=== PATIENT | female | born 1930 | race Caucasian/White ===

== ENCOUNTER 2018-11-19 16:36 | Inpatient (IN) ==
--- NOTE | 2018-11-19 17:20 | Emergency Department Note ---
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 The time I documented below is in addition to time spent performing reported procedures but includes the following listed in this critical care notation. Total Critical Care Time: 35 Vital system(s) involved:: Renal Failure My critical care processes included: Assessment & monitoring of V/S, Initial and Re-exams, Data Review/Interpretation, Coordinating Care, Medication Orders and management, Documentation Medical Decision Making - Patrick Inquiry Pt receiving controlled substance: No Vital Signs: 11/19/18 16:38 11/19/18 17:31 11/19/18 18:55 Temperature 97.9 F Temperature Source Oral Pulse Rate [Right Radial] 69 131 H 72 Respiratory Rate 18 14 18 Blood Pressure [Right Arm] 104/63 L 131/77 137/78 Blood Pressure Mean [Right Arm] 76 95 97 Blood Pressure Source [Right Arm] Automatic Cuff Automatic Cuff Automatic Cuff Blood Pressure Position [Right Arm] Sitting Supine Sitting 02 Sat by Pulse Oximetry 97 97 95 Oxygen Delivery Method Room Air Room Air Room Air 11/19/18 19:38 Temperature Temperature Source Pulse Rate [Right Radial] 72 Respiratory Rate 16 Blood Pressure [Right Arm] 104/54 L Blood Pressure Mean [Right Arm] 70 Blood Pressure Source [Right Arm] Automatic Cuff Blood Pressure Position [Right Arm] Supine 02 Sat by Pulse Oximetry 97 Oxygen Delivery Method Room Air - Lab Data Lab Results 11/19/18 18:18: WBC 6.0, RBC 3.58 L, Hgb 12.2, Hct 36.1 L, MCV 101.1 H, MCH 34.0 H, MCHC 33.6, RDW 13.7, Plt Count 114 L, MPV 9.0, Neut % (Auto) 74.7, Lymph % (Auto) 17.6, [place] % (Auto) 7.0, Eos % (Auto) 0.6, Baso % (Auto) 0.1, Neut # (Auto) 4.5, Lymph # (Auto) 1.1, [place] # (Auto) 0.4, Eos # (Auto) 0.0, Baso # (Auto) 0.0 11/19/18 18:18: Sodium 148 H, Potassium 4.2, Chloride 110 H, Carbon Dioxide 23, Anion Gap 19.2 H, BUN 78 H, Creatinine 3.01 H, Estimated Creat Clear 13, Estimated GFR 15 L*, Est GFR ( Amer) 18 L*, Glucose 100, Calcium 9.0, Total Bilirubin 0.3, AST 12 L, ALT 14, Alkaline Phosphatase 73, Total Creatine Kinase 48, Troponin I < 0.02, Total Protein 7.4 D, Albumin 3.4, Globulin 4.0 H, Albumin/Globulin Ratio 0.9 L 11/19/18 18:50: Urine Color Yellow, Urine Appearance Clear, Urine pH 6.0, Ur Specific [place] 1.010, Urine Protein Trace, Urine Glucose (UA) Negative, Urine Ketones Negative, Urine Blood Negative, Urine Nitrate Negative, Urine Bilirubin Negative, Urine Urobilinogen 0.2, Ur Leukocyte Esterase Negative, Urine WBC Occasional, Ur Squamous Epith Cells Occasional, Urine Bacteria Trace Result diagrams: 11/19/18 18:18 11/19/18 18:18 Orders (Tests/Meds): ED MEDICATIONS Generic Name Dose Route Start Last Admin Trade Name Freq PRN Reason Stop Dose Admin Ceftriaxone Sodium 1 gm/ 50 mls @ 100 mls/hr 11/19/18 20:00 Sodium Chloride IV 12/03/18 19:59 Q24H LENA Protocol Sodium Chloride 1,000 mls @ 150 mls/hr 11/19/18 20:00 Sod Chlor 0.45% 1000ml Bag IV 12/19/18 19:59 .Q6H40M LENA Discontinued Medications Generic Name Dose Route Start Last Admin Trade Name Freq PRN Reason Stop Dose Admin Sodium Chloride 1,000 mls @ 150 mls/hr 11/19/18 19:30 Sod Chlor 0.9% 1000ml Bag IV 12/19/18 19:29 .Q6H40M LENA ORDERS Category Date Time Status CT cervical spine wo con Stat Cat Scan 11/19/18 17:[address] head/brain wo con Stat Cat Scan 11/19/18 17:[address] lumbar spine wo con Stat Cat Scan 11/19/18 16:[address] thoracic spine wo con Stat Cat Scan 11/19/18 16:53 Taken XR chest portable Stat Exams 11/19/18 17:56 Taken - Radiology Data #1 Image(s): Chest Image Reviewed: Yes I reviewed the patient's radiology image Bilateral calcified pleural plaques. No acute disease. - CT Data CT Scan: Head, C-Spine, T-Spine, L-Spine Time Received: 18:[address] Reviewed: Yes: I have viewed the radiologist's interpretation Findings Narrative: CT scan interpreted by [facility] radiologist. Faxed report received and reviewed: 6:03 PM Thoracic spine: Minimal compression of T12. Age cannot be clearly determined. No evidence to indicate fracture. 6:26 PM lumbar spine: No fracture. Advanced degenerative changes with severe segmental central spinal stenosis from L2-L3 to L4-L5. Multilevel foraminal stenosis. 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 No acute injury or lesion. Extensive sinusitis. 7:10 PM cervical spine: No fracture. - ECG Data Tracing #1 EKG interpreted by Joaquim Beverly MD: Rhythm: sinus Rate: 72 [place]: normal Ectopy: none Conduction: normal ST Segment Changes: none T Wave Changes: none Q Waves: none No evidence of acute ischemia or injury Low voltage QRS Significant baseline artifact present. - Physician Consults Physician Consulted: Mervin Time: 19:45 Reason -: Admission Comment/Response: Agrees to admit the patient to the hospital. We discussed the patient's clinical information, including history, exam, laboratory and radiology results and ED course. Per hospital procedure, I will write temporary bridge inpatient orders on the patient. Specific orders requested by the admitting physician: Rocephin, one half normal saline, [facility]he[facility] General Adult HPI - General Chief complaint: Fall Stated complaint: fall, back pain and abd pain Time Seen by Provider: 11/19/18 17:19 Mode of Arrival: EMS Limitations: No Limitations Description of Symptoms (Recalled from ER Triage Doc. by RN): Pt c/o lower back pain and lower abd pain. Pt daughter reports she fell earlier today when getting back into bed after going to the restroom. pts daughter reports pt slid down in the floor states pt back was up against the matress when she fell. - History of Present Illness HPI narrative: Brought in by ambulance. History obtained from patient and family. At 730 this morning while family was sleeping the patient got up, apparently go to the bathroom, using her walker, and fell when getting back into bed. Daughter heard her fall and found her sitting beside the bed where she had apparently tried to turn around and sit on the bed and slipped down along the bed. Daughter noticed some bruises of her left arm. Patient complained of pain right cheek as well. She complains of chronic pain and daughter says it was not really changed and she did not suspect any significant injuries. They waited for a male family member to get home from the paleology teacher so that they could get her back into bed. She slept most of the day. When she woke up at noon she did not think she could walk to the bathroom because of generalized weakness. She has urinated twice on a urine pad today. She has not eaten today. She drank very little. They feel like she has been declining for the past week, walking very little, which is unusual for her. Having intermittent myoclonic jerks. They think 1 of these jerks may have caused her to fall today. However, fall was unwitnessed. They say she is acting the same way she did when she had a UTI last year. - Related Data Home Medications Medication Instructions Recorded Confirmed Cyanocobalamin (Vitamin B-12) 1,000 mcg PO DAILY 08/19/17 11/19/18 [Vitamin B-12 1000mcg Tablet] Ferrous Sulfate [Iron] 325 mg PO DAILY 08/19/17 11/19/18 Fluticasone Propionate [Flonase 2 spr IN DAILY 08/19/17 11/19/18 50mcg nasal spray 16gm] Furosemide [Furosemide 20mg Tab] 20 mg PO DAILY 08/19/17 11/19/18 Gabapentin [Gabapentin 100mg Cap] 100 mg PO BID 08/19/17 11/19/18 Gemfibrozil 600 mg PO BID 08/19/17 11/19/18 Hydralazine HCl [Hydralazine HCl 25 mg PO DAILY 08/19/17 11/19/18 25mg Tablet] Levobunolol HCl [Betagan 0.5% 10mL 1 drop EYE-BOTH DAILY 08/19/17 11/19/18 opth zohaib] Lisinopril/Hydrochlorothiazide 20 - 25 mg PO DAILY 08/19/17 11/19/18 [Lisinopril-Hctz 20-25 mg Tab] Loratadine [Allergy Relief] 10 mg PO DAILY 08/19/17 11/19/18 Memantine HCl/Donepezil HCl 10 - 14 mg PO DAILY 08/19/17 11/19/18 [Namzaric 14 mg-10 mg Capsule] Metoprolol Tartrate [Lopressor 25 mg PO DAILY 08/19/17 11/19/18 25mg tablet] Omeprazole [Omeprazole 40mg 40 mg PO DAILY 08/19/17 11/19/18 Capsule] Polyethylene Glycol 3350 [Miralax 17 gm PO DAILY 11/19/18 11/19/18 17gm Packet] Previous Rx's Medication Instructions Recorded Acetaminophen [Tylenol 500mg 500 mg PO Q4HP PRN tablet 08/27/17 tablet] Allergies Allergy/AdvReac Type Severity Reaction Status Date / Time No Known Allergies Allergy Verified 08/18/17 22:29 [place] History - Hepatitis A Screen Drug use history?: No High risk sexual behaviors?: No History of sexually transmitted infection?: No Currently employed?: No Childcare worker?: No Do you have indoor plumbing?: Yes Do you have electricity?: Yes Attestation statement:: This patient has been screened for Hepatitis A risk factors. I have reviewed the patient's past medical history: Yes Medical History: Reports:: Hyperlipidemia, Hypertension, Renal Insufficiency Denies:: Cancer, Diabetes Mellitus Type 1, Diabetes Mellitus Type 2, MRSA Other Medical History: Reports: Anemia, Arthritis, Cataracts, Glaucoma, Hormone Therapy Laterality Cases: Bilateral: Cataract Other Surgeries: Yes: , Hysterectomy-Total, Other (GALL BLADDER) Amputation: No Fractures: No Comment: cholecystectomy - Social History Smoking Status: Former smoker Tobacco Type: cigarettes Alcohol Intake: never Occupational Status: other Housing: house Household Members: none Comment: lives alone; her daughter has been staying with her - Psychiatric History Expresses thoughts of harming self/others: None Suicide Plan Description: No Plan Family Hx:: Anemia, Hyperlipidemia, Kidney Disease ROS Obtained: Yes All systems reviewed & no additional complaints - Constitutional Constitutional: Denies fever(s), Reports malaise, Reports weakness - Cardiovascular Cardiovascular: Denies chest pain - Respiratory Respiratory: No cough, No dyspnea - Gastrointestinal Gastrointestingal: Denies: abdominal pain (denies to me), diarrhea, vomiting - Musculoskeletal Musculoskeletal: Reports back pain (chronic), Denies neck pain - Neurologic Neurologic: Denies headache(s) Physical Exam - General General appearance: alert, in no apparent distress - Head Head exam: atraumatic, normocephalic - Eye Eye exam: Present: normal appearance, EOMI - ENT ENT exam: Present: mucous membranes moist, other (Tender over right maxilla, but no ecchymosis or deformity.) - Neck Neck exam: Present: normal inspection - Chest Chest inspection: Present: normal inspection, symmetric chest wall rise - Respiratory Respiratory exam: Present: normal lung sounds bilaterally. Absent: respiratory distress - Cardiovascular Cardiovascular exam: Present: regular rate, normal rhythm, normal heart sounds - Abdominal Exam Abdominal exam: Present: soft, tenderness (Minimal, diffuse). Absent: distention, guarding, rebound, rigidity - Extremities Exam Extremities exam: Present: full ROM, normal capillary refill - Neurological Exam Neurological exam: Present: alert, oriented X3, CN II-XII intact. Absent: motor sensory deficit - Psychiatric Psychiatric exam: Present: normal affect, normal mood - Skin Skin exam: Present: warm, dry - Other Other exam information: No deformity of extremities. No shortening or malrotation of lower extremities. Normal neurovascular status throughout. Moves all 4 extremities.
[2018-11-19 18:29] LABS: Basophils % 0.1 % (0.1-2.0); Eosinophils % 0.6 % (0.1-12.0); Hematocrit 36.1 % (37.0-47.0); Hemoglobin 12.2 g/dL (12.2-16.2); Lymphocytes # 1.1 K/mm3 (0.7-4.5); Lymphocytes % 17.6 % (10-50); Mean Corpuscular HGB Conc 33.6 g/dL (31.8-35.4); Mean Corpuscular Volume 101.1 fl (81-99); Monocytes # 0.4 K/mm3 (0.1-1.0); Neutrophils # 4.5 K/mm3 (1.8-7.8); Neutrophils % 74.7 % (37.0-80.0); Platelet Count 114 K/mm3 (142-424); Red Blood Count 3.58 M/mm3 (4.20-5.40); Red Cell Distribution Width 13.7 % (11.5-17.5)
[2018-11-19 18:57] LABS: Microscopic, Urine URINE MICROSCOPIC (MICROSCOPIC)
[2018-11-19 19:01] LABS: Appearance,Urine CLEAR (Clear); Bilirubin,Urine Negative (Negative); Blood, Urine Negative (Negative); Color,Urine YELLOW (Yellow); Glucose,Urine (UA) Negative (Negative); Ketones,Urine Negative (Negative); Leukocyte Esterase,Urine Negative (Negative); Protein,Urine TRACE (Negative); Urobilinogen,Urine 0.2 EU/dl (0.2)
[2018-11-19 19:05] LABS: Alanine Aminotransferase 14 U/L (12-78); Albumin Level 3.4 gm/dL (3.4-5.0); Albumin/Globulin Ratio 0.9 (1.1-1.8); Alkaline Phosphatase 73 U/L (46-116); Anion Gap 19.2 mEq/L (5-15); Aspartate Amino Transferase 12 U/L (15-37); Bilirubin,Total 0.3 mg/dL (0.2-1.0); Carbon Dioxide 23 mmol/L (21.0-32.0); Chloride 110 mmol/L (98-107); Creatine Kinase 48 U/L (26-192); Glucose 100 mg/dL (74-106); Potassium 4.2 mmoL/L (3.5-5.1); Sodium 148 mmol/L (136-145); Total Protein,Serum 7.4 gm/dL (6.4-8.2)
[2018-11-19 19:07] LABS: Blood Urea Nitrogen 78 mg/dL (7-18)
[2018-11-19 19:11] LABS: Bacteria,Urine Trace /lpf; Squamous Epithelial Cell,Urine Occasional #/hpf (0-5); WBC,Urine Occasional #/hpf (0-3)
[2018-11-20 06:58] LABS: Anion Gap 21.6 mEq/L (5-15); Calcium 8.8 mg/dL (8.5-10.1); Potassium 3.6 mmoL/L (3.5-5.1)
--- NOTE | 2018-11-20 08:35 | Pharmacy Consult Notes ---
[facility] Pharmacy VTE Monitoring - Patient Demographics Admission date: 11/20/18 Report Date: 11/20/18 Time: 08:34 Allergies/Adverse Reactions: Patient Allergies No Known Allergies Allergy (Verified 08/18/17 22:29) Height: 1.55 m Weight: 64.949 kg Patient Problems: Current Active Problems (Updated 11/19/18 @ 19:41 by Joaquim Beverly MD) Acute renal failure (Acute) Dehydration (Acute) Pansinusitis (Acute) Fall (Acute) - VTE Risk Labs: VTE Related Lab Results Hgb 12.2 g/dL (12.2-16.2) 11/19/18 18:18 Hct 36.1 % (37.0-47.0) L 11/19/18 18:18 Plt Count 114 K/mm3 (142-424) L 11/19/18 18:18 BUN 65 mg/dL (7-18) H 11/20/18 05:55 Creatinine 2.07 mg/dL (0.55-1.02) H D 11/20/18 05:55 Estimated Creat Clear 19 mL/min (50-200) 11/20/18 05:55 VTE Score: 2 VTE Risk Level: Very Low Risk Clinical Trial Participant: No - Prophylaxis VTE Prophylaxis Ordered?: Yes Types of VTE Prophylaxis: TEDS Knee High
--- NOTE | 2018-11-20 12:26 | History & Physical Report ---
*Admission Date: 11/20/18 *Chief complaint: Acute Renal Failure *History of present illness: Ms. Sequeira is an 88yo WF with hx of HTN, HLP, Renal Insufficiency, Glaucoma, GERD, and Anemia who was brought to the [facility] ED yesterday by squad. Her daughter provides most of the history and describes her falling yesterday morning while coming out of the bathroom followed by increasing lower extremity weakness and lethargy as the day progressed. When she was unable to ambulate to the bathroom in the afternoon, EMS was summoned and she was transported to the ED for further evaluation. The daughter reports that the patient had experienced some decrease in appetite and energy levels over the prior two weeks. The daughter also notes that the patient reported some involuntary "jerking" of her legs which she blamed as the cause of her fall. Upon arrival to the ED, her kidney function was found to be low with BUN 78, Creatinine 3.01, and GFR 15. Imaging showed chronic changes throughout the spine with T12 compression fracture new since July 2017 and CXR showed increased markings in the right lower lobe with recommendation for followup studies. She was admitted for IVF and further evaluation. This morning, she is resting quietly with her daughter at the bedside. She reports feeling better than she did yesterday and was able to eat a few bites of her breakfast. She notes continued pain in her right ribs with movement or with deep breathing as a result of her fall. [facility] History Medical History: Reports:: Gastroesophageal Reflux Disease(GERD), Hyperlipidemia, Hypertension, Osteoporosis, Renal Insufficiency Denies:: Cancer, Diabetes Mellitus Type 1, Diabetes Mellitus Type 2, MRSA *Have you ever received a pneumonia vaccine?: No *Have you received a flu vaccine this season?: No Other Medical History: Reports: Anemia, Arthritis, Cataracts, Glaucoma, Hormone Therapy, Osteoporosis Laterality Cases: Bilateral: Cataract Other Surgeries: Yes: Cholecystectomy, , Hysterectomy-Total, Other (GALL BLADDER) Amputation: No Fractures: No - *Social History Smoking Status: Former smoker Tobacco Type: cigarettes Alcohol Intake: never *Occupational Status:: other Housing: house Household Members: children, none *Travel in the last 8 weeks: None - Psychiatric History Expresses thoughts of harming self/others: None Suicide Plan Description: No Plan Family Hx:: Anemia, Hyperlipidemia, Kidney Disease Review of Systems - Constitutional Reports fatigue, Reports weakness, Denies fever(s) - ENT Denies nasal congestion, Denies sore throat - *Cardiovascular Denies chest pain, Denies shortness of breath, Denies lightheadedness - *Respiratory Reports pain on inspiration (due to rib pain from fall), Denies cough, Denies shortness of breath - *Gastrointestinal Denies abdominal pain, Denies nausea, Denies vomiting Comments: recent decrease in appetite - *Genitourinary Denies difficulty urinating - *Musculoskeletal Reports muscle weakness - *Neurologic Reports abnormal movements, Reports unsteadiness, Reports localized weakness, Reports seizure-like activity, Reports weakness, Denies dizziness, Denies headache(s) Meds Home Medications Medication Instructions Recorded Confirmed Type Cyanocobalamin (Vitamin B-12) 1,000 mcg PO DAILY 08/19/17 11/19/18 History [Vitamin B-12 1000mcg Tablet] Ferrous Sulfate [Iron] 325 mg PO DAILY 08/19/17 11/19/18 History Fluticasone Propionate [Flonase 1 spr IN DAILY 08/19/17 11/20/18 History 50mcg nasal spray 16gm] Furosemide [Furosemide 20mg Tab] 20 mg PO DAILY 08/19/17 11/19/18 History Gabapentin [Gabapentin 100mg Cap] 100 mg PO BID 08/19/17 11/19/18 History Hydralazine HCl [Hydralazine HCl 25 mg PO DAILY 08/19/17 11/19/18 History 25mg Tablet] Levobunolol HCl [Betagan 0.5% 10mL 1 drop EYE-BOTH DAILY 08/19/17 11/19/18 History opth zohaib] Lisinopril/Hydrochlorothiazide 1 tab PO DAILY 08/19/17 11/20/18 History [Lisinopril-Hctz 20-25 mg Tab] Loratadine [Allergy Relief] 10 mg PO DAILY 08/19/17 11/19/18 History Memantine HCl/Donepezil HCl 1 tab PO DAILY 08/19/17 11/20/18 History [Namzaric 14 mg-10 mg Capsule] Metoprolol Tartrate [Lopressor 25 mg PO DAILY 08/19/17 11/19/18 History 25mg tablet] Omeprazole [Omeprazole 40mg 40 mg PO DAILY 08/19/17 11/19/18 History Capsule] Acetaminophen [Tylenol 500mg 500 mg PO Q4HP PRN tablet 08/27/17 11/19/18 Rx tablet] Polyethylene Glycol 3350 [Miralax 17 gm PO DAILY 11/19/18 11/19/18 History 17gm Packet] Furosemide [Furosemide 20mg Tab] 10 mg PO HS 11/20/18 11/20/18 History Gemfibrozil 600 mg PO BID 11/20/18 11/20/18 History Allergies Allergy/AdvReac Type Severity Reaction Status Date / Time No Known Allergies Allergy Verified 08/18/17 22:29 Exam Vital signs and Labs for Last 24 Hours: Temp Pulse Resp BP Pulse Ox 98.3 F 79 18 138/52 L 96 11/20/18 08:00 11/20/18 08:00 11/20/18 08:00 11/20/18 08:00 11/20/18 08:00 Laboratory Results - last 24 hr 11/19/18 18:18: WBC 6.0, RBC 3.58 L, Hgb 12.2, Hct 36.1 L, MCV 101.1 H, MCH 34.0 H, MCHC 33.6, RDW 13.7, Plt Count 114 L, MPV 9.0, Neut % (Auto) 74.7, Lymph % (Auto) 17.6, [place] % (Auto) 7.0, Eos % (Auto) 0.6, Baso % (Auto) 0.1, Neut # (Auto) 4.5, Lymph # (Auto) 1.1, [place] # (Auto) 0.4, Eos # (Auto) 0.0, Baso # (Auto) 0.0 11/19/18 18:18: Sodium 148 H, Potassium 4.2, Chloride 110 H, Carbon Dioxide 23, Anion Gap 19.2 H, BUN 78 H, Creatinine 3.01 H, Estimated Creat Clear 13, Estimated GFR 15 L*, Est GFR ( Amer) 18 L*, Glucose 100, Calcium 9.0, Total Bilirubin 0.3, AST 12 L, ALT 14, Alkaline Phosphatase 73, Total Creatine Kinase 48, Troponin I < 0.02, Total Protein 7.4 D, Albumin 3.4, Globulin 4.0 H, Albumin/Globulin Ratio 0.9 L 11/19/18 18:50: Urine Color Yellow, Urine Appearance Clear, Urine pH 6.0, Ur Specific [place] 1.010, Urine Protein Trace, Urine Glucose (UA) Negative, Urine Ketones Negative, Urine Blood Negative, Urine Nitrate Negative, Urine Bilirubin Negative, Urine Urobilinogen 0.2, Ur Leukocyte Esterase Negative, Urine WBC Occasional, Ur Squamous Epith Cells Occasional, Urine Bacteria Trace 11/20/18 05:55: Sodium 148 H, Potassium 3.6, Chloride 111 H, Carbon Dioxide 19 L , Anion Gap 21.6 H, BUN 65 H, Creatinine 2.07 H D, Estimated Creat Clear 19, Estimated GFR 23 L, Est GFR ( Amer) 27 L D, Glucose 70 L D, Calcium 8.8 I & O for Last 24 hours: Intake & Output 11/18/18 11/19/18 11/20/18 11/21/18 11:59 11:59 11:59 11:59 Intake Total 1884 Balance 1884 Weight 143 lb 3.008 oz - Constitutional no acute distress - *Routine HEENT Exam Head: Present: normocephalic, atraumatic Eye: Present: PERRL, normal accommodation ENT: Present: mucous membranes moist - *Routine Neck Exam Present: supple, full ROM. Absent: lymphadenopathy - *Routine Respiratory Exam Present: CTA bilaterally - *Routine Cardiovascular Exam Present: RRR - *Routine Abdominal Exam Present: soft, normoactive bowel sounds. Absent: tenderness, distended, guarding, rigid, organomegaly, mass - *Routine Extremities Exam Comments: trace BLE edema - *Routine Neurological Exam Present: alert, oriented X3, normal speech Assessment and Plan - Assessment and plan all Dx Assessment and Plan for all problems:: Renal function slowly improving. Continue gentle hydration. Further per Dr. Jeffries.
--- NOTE | 2018-11-21 08:45 | Progress Note ---
Internal Medicine - PN: Subj *Date: 11/21/18 *Time: 08:42 Interval history: Patient states she feels awful this morning. She says she hurts all over and did not rest well during the night due to nausea. She has not eaten much this morning. Exam Vital signs and Labs for Last 24 Hours: Temp Pulse Resp BP Pulse Ox 98.1 F 75 20 143/52 H 97 11/21/18 07:40 11/21/18 07:40 11/21/18 07:40 11/21/18 07:40 11/21/18 07:40 I & O for Last 24 hours: Intake & Output 11/18/18 11/19/18 11/20/18 11/21/18 11:59 11:59 11:59 11:59 Intake Total 1884 / 1884 3876 / 3876 Balance 1884 / 1884 3876 / 3876 Weight 143 lb 3.008 oz 145 lb 3 oz - Constitutional Comments: Does not appear to feel well - *Routine HEENT Exam ENT: Present: mucous membranes dry - *Routine Neck Exam Present: supple. Absent: lymphadenopathy - *Routine Respiratory Exam Present: CTA bilaterally - *Routine Cardiovascular Exam Present: RRR - *Routine Abdominal Exam Present: soft, normoactive bowel sounds. Absent: tenderness - *Routine Extremities Exam Absent: cyanosis, clubbing, edema - *Routine Skin Exam Present: pallor. Absent: rash - *Routine Neurological Exam Present: alert, oriented X3 Assessment and Plan (1) Acute renal failure Current visit: Yes Status: Acute Qualifiers: Acute renal failure type: unspecified Qualified Code(s): N17.9 - Acute kidney failure, unspecified Category: Medical Code(s): N17.9 - Acute kidney failure, unspecified (2) Dehydration Current visit: Yes Status: Acute Category: Medical Code(s): E86.0 - Dehydration (3) Fall Current visit: Yes Status: Acute Qualifiers: Encounter type: initial encounter Qualified Code(s): W19.XXXA - Unspecified fall, initial encounter Category: Medical Code(s): W19.XXXA - Unspecified fall, initial encounter (4) Pansinusitis Current visit: Yes Status: Acute Qualifiers: Chronicity: unspecified Qualified Code(s): 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 Category: Medical Code(s): 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 (5) Nausea Current visit: Yes Status: Acute Category: Medical Code(s): R11.0 - Nausea - Assessment and plan all Dx Assessment and Plan for all problems:: We will start on some nausea medicine today and will repeat lab work and get a CPK.
[2018-11-21 09:29] LABS: Basophils % 0.3 % (0.1-2.0); Eosinophils # 0.1 K/mm3 (0.0-0.4); Eosinophils % 2.4 % (0.1-12.0); Hematocrit 38.3 % (37.0-47.0); Hemoglobin 12.7 g/dL (12.2-16.2); Lymphocytes % 30.3 % (10-50); Mean Corpuscular HGB Conc 33.2 g/dL (31.8-35.4); Mean Corpuscular Hemoglobin 33.2 pg (27.0-31.2); Mean Corpuscular Volume 99.9 fl (81-99); Mean Platelet Volume 9.3 fl (7.4-10.4); Monocytes # 0.2 K/mm3 (0.1-1.0); Monocytes % 6.9 % (1.7-9.3); Neutrophils % 60.2 % (37.0-80.0); Platelet Count 80 K/mm3 (142-424); Red Blood Count 3.83 M/mm3 (4.20-5.40); Red Cell Distribution Width 13.5 % (11.5-17.5); White Blood Count 3.3 K/mm3 (4.8-10.8)
[2018-11-21 10:23] LABS: Albumin Level 2.6 gm/dL (3.4-5.0); Albumin/Globulin Ratio 0.7 (1.1-1.8); Anion Gap 18.3 mEq/L (5-15); Bilirubin,Total 0.2 mg/dL (0.2-1.0); Calcium 8.7 mg/dL (8.5-10.1); Globulin 3.8 gm/dl (1.3-3.2); Potassium 3.3 mmoL/L (3.5-5.1); Total Protein,Serum 6.4 gm/dL (6.4-8.2)
--- NOTE | 2018-11-22 11:05 | Progress Note ---
Internal Medicine - PN: Subj *Date: 11/22/18 *Time: 11:02 Interval history: We were planning to admit the patient to swing bed but she has had a mental status change. Her potassium was low yesterday at 3.3 and was not corrected. The order for supplemental potassium is placed. IV fluids were discontinued last night and she was placed on a saline lock. A CT scan will be ordered to make sure that there is no subsequent brain bleed after her fall. She seems comfortable regarding her back. There is some concern that the increased dose of gabapentin may have complicated her mental status. We will decrease the gabapentin. Exam Vital signs and Labs for Last 24 Hours: Temp Pulse Resp BP Pulse Ox 97.7 F 103 H 22 180/75 H 94 L 11/22/18 08:00 11/22/18 08:00 11/22/18 08:00 11/22/18 08:00 11/22/18 08:00 I & O for Last 24 hours: Intake & Output 11/19/18 11/20/18 11/21/18 11/22/18 11:59 11:59 11:59 11:59 Intake Total 1885 / 1884 3996 / 3996 1933 / 1933 Balance 1885 / 1885 3996 / 3996 1933 / 1933 Weight 143 lb 3.008 oz 145 lb 3 oz 150 lb 9 oz - Constitutional Comments: Confused this morning. She has pieces of cracker that she is trying to feed to someone who is not there. - *Routine HEENT Exam Head: Present: normocephalic Eye: Present: PERRL ENT: Present: mucous membranes moist - *Routine Respiratory Exam Present: CTA bilaterally - *Routine Cardiovascular Exam Present: RRR - *Routine Abdominal Exam Present: soft. Absent: tenderness - *Routine Extremities Exam Absent: edema - *Routine Neurological Exam Present: altered mental status. Absent: motor deficit Assessment and Plan (1) Acute renal failure Current visit: Yes Status: Acute Qualifiers: Acute renal failure type: unspecified Qualified Code(s): N17.9 - Acute kidney failure, unspecified Category: Medical Code(s): N17.9 - Acute kidney failure, unspecified (2) Dehydration Current visit: Yes Status: Acute Category: Medical Code(s): E86.0 - Dehydration (3) Fall Current visit: Yes Status: Acute Qualifiers: Encounter type: initial encounter Qualified Code(s): W19.XXXA - Unspecified fall, initial encounter Category: Medical Code(s): W19.XXXA - Unspecified fall, initial encounter (4) Pansinusitis Current visit: Yes Status: Acute Qualifiers: Chronicity: unspecified Qualified Code(s): 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 Category: Medical Code(s): 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 (5) Nausea Current visit: Yes Status: Acute Category: Medical Code(s): R11.0 - Nausea (6) Altered mental status Current visit: No Status: Chronic Qualifiers: Altered mental status type: transient alteration of awareness Qualified C ode(s): R40.4 - Transient alteration of awareness Category: Medical Code(s): R41.82 - Altered mental status, unspecified - Assessment and plan all Dx Assessment and Plan for all problems:: Potassium supplementation. CT scan. Urinalysis.
[2018-11-22 13:53] LABS: Anion Gap 15.8 mEq/L (5-15); Calcium 9.4 mg/dL (8.5-10.1); Potassium 3.8 mmoL/L (3.5-5.1)
[2018-11-23 06:16] LABS: Anion Gap 15.4 mEq/L (5-15); Calcium 9.3 mg/dL (8.5-10.1); Potassium 3.4 mmoL/L (3.5-5.1)
--- NOTE | 2018-11-23 10:31 | Progress Note ---
Internal Medicine - PN: Subj *Date: 11/23/18 *Time: 10:30 Exam Vital signs and Labs for Last 24 Hours: Temp Pulse Resp BP Pulse Ox 98.6 F 83 18 157/72 H 96 11/23/18 09:46 11/23/18 09:46 11/23/18 09:46 11/23/18 09:46 11/23/18 09:46 Laboratory Results - last 24 hr 11/22/18 13:30: Sodium 144, Potassium 3.8, Chloride 108 H, Carbon Dioxide 24, Anion Gap 15.8 H, BUN 24 H D, Creatinine 1.29 H, Estimated Creat Clear 32, Estimated GFR 39 L, Est GFR ( Amer) 47 L D, Glucose 114 H, Calcium 9.4 11/23/18 05:40: Sodium 143, Potassium 3.4 L, Chloride 107, Carbon Dioxide 24, Anion Gap 15.4 H, BUN 24 H, Creatinine 1.23 H, Estimated Creat Clear 33, Estimated GFR 41 L, Est GFR ( Amer) 50 L, Glucose 102, Calcium 9.3 I & O for Last 24 hours: Intake & Output 11/20/18 11/21/18 11/22/18 11/23/18 23:59 23:59 23:59 23:59 Intake Total 3439 / 3439 3565 / 3565 0 / 0 0 / 0 Output Total 200 / 200 Balance 3439 / 3439 3565 / 3565 -200 / -200 0 / 0 Weight 64.949 kg 65.856 kg 68.294 kg 66.281 kg Assessment and Plan (1) Acute renal failure Current visit: Yes Status: Acute Qualifiers: Acute renal failure type: unspecified Qualified Code(s): N17.9 - Acute kidney failure, unspecified Category: Medical Code(s): N17.9 - Acute kidney failure, unspecified (2) Dehydration Current visit: Yes Status: Acute Category: Medical Code(s): E86.0 - Dehydration (3) Fall Current visit: Yes Status: Acute Qualifiers: Encounter type: initial encounter Qualified Code(s): W19.XXXA - Unspecified fall, initial encounter Category: Medical Code(s): W19.XXXA - Unspecified fall, initial encounter (4) Pansinusitis Current visit: Yes Status: Acute Qualifiers: Chronicity: unspecified Qualified Code(s): 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 Category: Medical Code(s): 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 (5) Nausea Current visit: Yes Status: Acute Category: Medical Code(s): R11.0 - Nausea (6) Altered mental status Current visit: No Status: Chronic Qualifiers: Altered mental status type: transient alteration of awareness Qualified Code(s): R40.4 - Transient alteration of awareness Category: Medical Code(s): R41.82 - Altered mental status, unspecified The patient's infection will respond to the chosen ABx?: Yes Is the patient receiving the right drug, dose, and route?: Yes Could a more targeted ABx be ordered?: No (AFEBRILE, NO CULTURES)
--- NOTE | 2018-11-23 11:15 | Progress Note ---
Internal Medicine - PN: Subj *Date: 11/23/18 *Time: 11:13 Interval history: Nurses report patient was combative at times yesterday. They were unable to collect a urine specimen. Patient is more cooperative this morning. Exam Vital signs and Labs for Last 24 Hours: Temp Pulse Resp BP Pulse Ox 98.6 F 83 18 157/72 H 96 11/23/18 09:46 11/23/18 09:46 11/23/18 09:46 11/23/18 09:46 11/23/18 09:46 Laboratory Results - last 24 hr 11/22/18 13:30: Sodium 144, Potassium 3.8, Chloride 108 H, Carbon Dioxide 24, Anion Gap 15.8 H, BUN 24 H D, Creatinine 1.29 H, Estimated Creat Clear 32, Estimated GFR 39 L, Est GFR ( Amer) 47 L D, Glucose 114 H, Calcium 9.4 11/23/18 05:40: Sodium 143, Potassium 3.4 L, Chloride 107, Carbon Dioxide 24, Anion Gap 15.4 H, BUN 24 H, Creatinine 1.23 H, Estimated Creat Clear 33, Estimated GFR 41 L, Est GFR ( Amer) 50 L, Glucose 102, Calcium 9.3 I & O for Last 24 hours: Intake & Output 11/20/18 11/21/18 11/22/18 11/23/18 23:59 23:59 23:59 23:59 Intake Total 3439 / 3439 3565 / 3565 0 / 0 0 / 0 Output Total 200 / 200 Balance 3439 / 3439 3565 / 3565 -200 / -200 0 / 0 Weight 143 lb 3.008 oz 145 lb 3 oz 150 lb 9 oz 146 lb 2 oz - Constitutional no acute distress - *Routine HEENT Exam Head: Present: normocephalic Eye: Present: EOMI ENT: Present: mucous membranes moist - *Routine Neck Exam Present: supple. Absent: lymphadenopathy - *Routine Respiratory Exam Present: CTA bilaterally - *Routine Cardiovascular Exam Present: RRR - *Routine Abdominal Exam Present: soft, normoactive bowel sounds. Absent: tenderness - *Routine Extremities Exam Absent: cyanosis, clubbing, edema - *Routine Skin Exam Present: warm. Absent: rash - *Routine Neurological Exam Present: alert Assessment and Plan (1) Acute renal failure Current visit: Yes Status: Acute Qualifiers: Acute renal failure type: unspecified Qualified Code(s): N17.9 - Acute kidney failure, unspecified Category: Medical Code(s): N17.9 - Acute kidney failure, unspecified (2) Dehydration Current visit: Yes Status: Acute Category: Medical Code(s): E86.0 - Dehydration (3) Fall Current visit: Yes Status: Acute Qualifiers: Encounter type: initial encounter Qualified Code(s): W19.XXXA - Unspecified fall, initial encounter Category: Medical Code(s): W19.XXXA - Unspecified fall, initial encounter (4) Pansinusitis Current visit: Yes Status: Acute Qualifiers: Chronicity: unspecified Qualified Code(s): 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 Category: Medical Code(s): 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 (5) Nausea Current visit: Yes Status: Acute Category: Medical Code(s): R11.0 - Nausea (6) Altered mental status Current visit: No Status: Chronic Qualifiers: Altered mental status type: transient alteration of awareness Qualified Code(s): R40.4 - Transient alteration of awareness Category: Medical Code(s): R41.82 - Altered mental status, unspecified - Assessment and plan all Dx Assessment and Plan for all problems:: OK to in and out cath to collect urine specimen, continue current treatment.
[2018-11-23 14:21] LABS: Microscopic, Urine URINE MICROSCOPIC (MICROSCOPIC)
[2018-11-23 14:26] LABS: Appearance,Urine SL CLOUDY (Clear); Bilirubin,Urine Negative (Negative); Blood, Urine TRACE-L (Negative); Color,Urine YELLOW (Yellow); Glucose,Urine (UA) Negative (Negative); Ketones,Urine TRACE (Negative); Leukocyte Esterase,Urine Negative (Negative); Protein,Urine 1+ (Negative); Specific Gravity, Urine 1.015 (1.005-1.030); Urobilinogen,Urine 0.2 EU/dl (0.2)
[2018-11-23 14:37] LABS: Bacteria,Urine 4+ /lpf
[2018-11-24 06:48] LABS: Basophils % 0.2 % (0.1-2.0); Eosinophils # 0.1 K/mm3 (0.0-0.4); Eosinophils % 1.6 % (0.1-12.0); Hematocrit 31.6 % (37.0-47.0); Hemoglobin 10.7 g/dL (12.2-16.2); Lymphocytes # 1.4 K/mm3 (0.7-4.5); Lymphocytes % 29.4 % (10-50); Mean Corpuscular HGB Conc 33.9 g/dL (31.8-35.4); Mean Corpuscular Hemoglobin 33.9 pg (27.0-31.2); Mean Corpuscular Volume 100.1 fl (81-99); Mean Platelet Volume 8.7 fl (7.4-10.4); Monocytes # 0.4 K/mm3 (0.1-1.0); Monocytes % 7.5 % (1.7-9.3); Neutrophils # 2.9 K/mm3 (1.8-7.8); Neutrophils % 61.2 % (37.0-80.0); Platelet Count 150 K/mm3 (142-424); Red Blood Count 3.15 M/mm3 (4.20-5.40); Red Cell Distribution Width 13.9 % (11.5-17.5); White Blood Count 4.7 K/mm3 (4.8-10.8)
[2018-11-24 07:02] LABS: Anion Gap 14.7 mEq/L (5-15); Calcium 9.2 mg/dL (8.5-10.1); Potassium 3.7 mmoL/L (3.5-5.1)
--- NOTE | 2018-11-24 08:46 | Progress Note ---
Internal Medicine - PN: Subj *Date: 11/24/18 *Time: 08:43 Interval history: Per patient's daughter: Her mother rested well last night. She had a better day yesterday and was less combative and more oriented. Patient denies pain today. She is just awakened and feels like she might eat some breakfast. Exam Vital signs and Labs for Last 24 Hours: Temp Pulse Resp BP Pulse Ox 99.1 F 69 20 133/63 96 11/24/18 06:06 11/24/18 06:06 11/24/18 06:06 11/24/18 06:06 11/24/18 06:06 Laboratory Results - last 24 hr 11/23/18 14:08: Urine Color Yellow, Urine Appearance Sl cloudy, Urine pH 6.0, Ur Specific Ruby 1.015, Urine Protein 1+, Urine Glucose (UA) Negative, Urine Ketones Trace, Urine Blood Trace-l, Urine Nitrate Negative, Urine Bilirubin Negative, Urine Urobilinogen 0.2, Ur Leukocyte Esterase Negative, Urine WBC 3-5, Ur Squamous Epith Cells 5-10, Urine Bacteria 4+ 11/24/18 06:03: WBC 4.7 L D, RBC 3.15 L, Hgb 10.7 L, Hct 31.6 L, MCV 100.1 H, MCH 33.9 H, MCHC 33.9, RDW 13.9, Plt Count 150 D, MPV 8.7, Neut % (Auto) 61.2, Lymph % (Auto) 29.4, [place] % (Auto) 7.5, Eos % (Auto) 1.6, Baso % (Auto) 0.2, Neut # (Auto) 2.9, Lymph # (Auto) 1.4, [place] # (Auto) 0.4, Eos # (Auto) 0.1, Baso # (Auto) 0.0 11/24/18 06:03: Sodium 144, Potassium 3.7, Chloride 109 H, Carbon Dioxide 24, Anion Gap 14.7, BUN 23 H, Creatinine 1.53 H D, Estimated Creat Clear 26, Estimated GFR 32 L, Est GFR ( Amer) 39 L D, Glucose 89, Calcium 9.2 I & O for Last 24 hours: Intake & Output 11/21/18 11/22/18 11/23/18 11/24/18 11:59 11:59 11:59 11:59 Intake Total 3996 / 3996 1932 0 / 0 170 / 170 Output Total 200 / 200 Balance 3996 / 3996 1932 -200 / -200 170 / 170 Weight 145 lb 3 oz 150 lb 9 oz 146 lb 2 oz 145 lb 4 oz - Constitutional no acute distress Comments: Awakened for assessment. Appears comfortable. Breathing is easy. - *Routine Respiratory Exam Present: CTA bilaterally (Anteriorly and posteriorly) - *Routine Cardiovascular Exam Present: RRR, murmur - *Routine Abdominal Exam Present: soft, normoactive bowel sounds. Absent: tenderness - *Routine Extremities Exam Absent: edema, calf tenderness - *Routine Neurological Exam Present: alert Assessment and Plan (1) Acute renal failure Current visit: Yes Status: Acute Qualifiers: Acute renal failure type: unspecified Qualified Code(s): N17.9 - Acute kidney failure, unspecified Category: Medical Code(s): N17.9 - Acute kidney failure, unspecified (2) Dehydration Current visit: Yes Status: Acute Category: Medical Code(s): E86.0 - Dehydration (3) Fall Current visit: Yes Status: Acute Qualifiers: Encounter type: initial encounter Qualified Code(s): W19.XXXA - Unspecified fall, initial encounter Category: Medical Code(s): W19.XXXA - Unspecified fall, initial encounter (4) Pansinusitis Current visit: Yes Status: Acute Qualifiers: Chronicity: unspecified Qualified Code(s): 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 Category: Medical Code(s): 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 (5) Nausea Current visit: Yes Status: Acute Category: Medical Code(s): R11.0 - Nausea (6) Altered mental status Current visit: No Status: Chronic Qualifiers: Altered mental status type: transient alteration of awareness Qualified Code(s): R40.4 - Transient alteration of awareness Category: Medical Code(s): R41.82 - Altered mental status, unspecified (7) Urinary tract infection Current visit: Yes Status: Acute Category: Medical Code(s): N39.0 - Urinary tract infection, site not specified - Assessment and plan all Dx Assessment and Plan for all problems:: We will continue with Rocephin. Therapy is seeing the patient.
--- NOTE | 2018-11-24 13:44 | Discharge Summary ---
General - General Admission date:: 11/19/18 Discharge date: 11/24/18 HPI HPI: Ms. Sequeira is an 88yo WF with hx of HTN, HLP, Renal Insufficiency, Glaucoma, GERD, and Anemia who was brought to the [facility] ED yesterday by squad. Her daughter provides most of the history and describes her falling yesterday morning while coming out of the bathroom followed by increasing lower extremity weakness and lethargy as the day progressed. When she was unable to ambulate to the bathroom in the afternoon, EMS was summoned and she was transported to the ED for further evaluation. The daughter reports that the patient had experienced some decrease in appetite and energy levels over the prior two weeks. The daughter also notes that the patient reported some involuntary "jerking" of her legs which she blamed as the cause of her fall. Upon arrival to the ED, her kidney function was found to be low with BUN 78, Creatinine 3.01, and GFR 15. Imaging showed chronic changes throughout the spine with T12 compression fracture new since July 2017 and CXR showed increased markings in the right lower lobe with recommendation for followup studies. She was admitted for IVF and further evaluation. Objective Vital signs: Temp Pulse Resp BP Pulse Ox 99.1 F 69 20 133/63 96 11/24/18 06:06 11/24/18 06:06 11/24/18 06:06 11/24/18 06:06 11/24/18 06:06 Narrative: - Constitutional no acute distress - *Routine HEENT Exam Head: Present: normocephalic, atraumatic Eye: Present: PERRL, normal accommodation ENT: Present: mucous membranes moist - *Routine Neck Exam Present: supple, full ROM. Absent: lymphadenopathy - *Routine Respiratory Exam Present: CTA bilaterally - *Routine Cardiovascular Exam Present: RRR - *Routine Abdominal Exam Present: soft, normoactive bowel sounds. Absent: tenderness, distended, guarding, rigid, organomegaly, mass - *Routine Extremities Exam Comments: trace BLE edema - *Routine Neurological Exam Present: alert, oriented X3, normal speech Results Labs on day of discharge: Labs from last 24 hours 11/24/18 11/24/18 11/23/18 06:03 06:03 14:08 WBC 4.7 L D RBC 3.15 L Hgb 10.7 L Hct 31.6 L MCV 100.1 H MCH 33.9 H MCHC 33.9 RDW 13.9 Plt Count 150 D MPV 8.7 Neut % (Auto) 61.2 Lymph % (Auto) 29.4 [place] % (Auto) 7.5 Eos % (Auto) 1.6 Baso % (Auto) 0.2 Neut # (Auto) 2.9 Lymph # (Auto) 1.4 Early # (Auto) 0.4 Eos # (Auto) 0.1 Baso # (Auto) 0.0 Sodium 144 Potassium 3.7 Chloride 109 H Carbon Dioxide 24 Anion Gap 14.7 BUN 23 H Creatinine 1.53 H D Estimated Creat Clear 26 Estimated GFR 32 L Est GFR ( Amer) 39 L D Glucose 89 Calcium 9.2 Urine Color Yellow Urine Appearance Sl cloudy Urine pH 6.0 Ur Specific [place] 1.015 Urine Protein 1+ Urine Glucose (UA) Negative Urine Ketones Trace Urine Blood Trace-l Urine Nitrate Negative Urine Bilirubin Negative Urine Urobilinogen 0.2 Ur Leukocyte Esterase Negative Urine WBC 3-5 Ur Squamous Epith Cells 5-10 Urine Bacteria 4+ DS: Diagnosis - Discharge Diagnosis (1) Acute renal failure Status: Acute (2) Dehydration Status: Acute (3) Fall Status: Acute (4) Pansinusitis Status: Acute (5) Nausea Status: Acute (6) Altered mental status Status: Chronic (7) Urinary tract infection Status: Acute Discharge Plan - Patient Discharge Instructions Patient Instructions: Sinusitis, Kidney Failure, Dehydration, DI for Kidney Failure, DI for Dehydration -- Adult, DI for Sinusitis, Acute Renal Failure, How to Prevent Falls - Follow up Plan Disposition: [facility] Sw[facility] Home Medications: Home Medications Medication Instructions Recorded Confirmed Type Cyanocobalamin (Vitamin B-12) 1,000 mcg PO DAILY 08/19/17 11/19/18 History [Vitamin B-12 1000mcg Tablet] Ferrous Sulfate [Iron] 325 mg PO DAILY 08/19/17 11/19/18 History Fluticasone Propionate [Flonase 1 spr IN DAILY 08/19/17 11/20/18 History 50mcg nasal spray 16gm] Furosemide [Furosemide 20mg Tab] 20 mg PO DAILY 08/19/17 11/19/18 History Gabapentin [Gabapentin 100mg Cap] 100 mg PO BID 08/19/17 11/19/18 History Levobunolol HCl [Betagan 0.5% 10mL 1 drop EYE-BOTH DAILY 08/19/17 11/19/18 History opth zohaib] Loratadine [Allergy Relief] 10 mg PO DAILY 08/19/17 11/19/18 History Metoprolol Tartrate [Lopressor 25 mg PO DAILY 08/19/17 11/19/18 History 25mg tablet] Omeprazole [Omeprazole 40mg 40 mg PO DAILY 08/19/17 11/19/18 History Capsule] Acetaminophen [Tylenol 500mg 500 mg PO Q4HP PRN tablet 08/27/17 11/19/18 Rx tablet] Polyethylene Glycol 3350 [Miralax 17 gm PO DAILY 11/19/18 11/19/18 History 17gm Packet] 0.9 % Sodium Chloride [Saline 10 ml IV NEEDED PRN syringe 11/24/18 Rx Flush 10mL syringe] Ceftriaxone Sodium [Rocephin 1gm 1 gm IV Q24H vial 11/24/18 Rx vial] Donepezil HCl [Aricept 10mg 10 mg PO HS tab 11/24/18 Rx tablet] Fluticasone Propionate [Flonase 1 spr NS DAILY bottle 11/24/18 Rx 50mcg nasal spray 16gm] Levobunolol HCl [Betagan 0.5% 10mL 0 ml OP DAILY ml 11/24/18 Rx opth zohaib] Lisinopril/Hydrochlorothiazide 1 tab PO DAILY #30 tab 11/24/18 Rx [Lisinopril-Hctz 10-12.5 mg Tab] Memantine HCl [Memantine 10mg 10 mg PO BID tab 11/24/18 Rx Tablet] Potassium Chloride [Klor-con 20 20 meq PO TID tab 11/24/18 Rx mEq tablet] Prescriptions/Medication Reconciliation: New Donepezil HCl [Aricept 10mg tablet] 10 mg PO HS tab Fluticasone Propionate [Flonase 50mcg nasal spray 16gm] 1 spr NS DAILY bottle Levobunolol HCl [Betagan 0.5% 10mL opth zohaib] 0 ml OP DAILY ml Potassium Chloride [Klor-con 20 mEq tablet] 20 meq PO TID tab Ceftriaxone Sodium [Rocephin 1gm vial] 1 gm IV Q24H vial Lisinopril/Hydrochlorothiazide [Lisinopril-Hctz 10-12.5 mg Tab] 1 tab PO DAILY #30 tab 0.9 % Sodium Chloride [Saline Flush 10mL syringe] 10 ml IV NEEDED PRN syringe PRN Reason: Maintain Iv Site Memantine HCl [Memantine 10mg Tablet] 10 mg PO BID tab Continued Omeprazole [Omeprazole 40mg Capsule] 40 mg PO DAILY Levobunolol HCl [Betagan 0.5% 10mL opth zohaib] 1 drop EYE-BOTH DAILY Gabapentin [Gabapentin 100mg Cap] 100 mg PO BID Furosemide [Furosemide 20mg Tab] 20 mg PO DAILY Fluticasone Propionate [Flonase 50mcg nasal spray 16gm] 1 spr IN DAILY Loratadine [Allergy Relief] 10 mg PO DAILY Ferrous Sulfate [Iron] 325 mg PO DAILY Cyanocobalamin (Vitamin B-12) [Vitamin B-12 1000mcg Tablet] 1,000 mcg PO DAILY Acetaminophen [Tylenol 500mg tablet] 500 mg PO Q4HP PRN tablet PRN Reason: As Needed For Fever Or Pain Metoprolol Tartrate [Lopressor 25mg tablet] 25 mg PO DAILY Polyethylene Glycol 3350 [Miralax 17gm Packet] 17 gm PO DAILY Discontinued Memantine HCl/Donepezil HCl [Namzaric 14 mg-10 mg Capsule] 1 tab PO DAILY Furosemide [Furosemide 20mg Tab] 10 mg PO HS Lisinopril/Hydrochlorothiazide [Lisinopril-Hctz 20-25 mg Tab] 1 tab PO DAILY Gemfibrozil 600 mg PO BID
== END 2018-11-24 09:32 | disposition swing bed (61) | DRG 641 ==
LOC: 2ND 16:36 → ER 16:36 → OBSVTOIN 21:08 → 2ND 21:09
PROVIDERS: ADMIT Family Medicine; ATTEND Family Medicine
CPT/HCPCS: J2405

== ENCOUNTER 2018-11-24 09:34 | Inpatient (IN) ==
--- NOTE | 2018-11-24 13:35 | Swing Bed Reports ---
*Admission Date: 11/24/18 *Chief complaint: Acute renal failure; debility *History of present illness: Ms. Sequeira is an 88yo WF with hx of HTN, HLP, Renal Insufficiency, Glaucoma, GERD, and Anemia who was brought to the [facility] ED by squad. Her daughter provided most of the history and described her falling while coming out of the bathroom followed by increasing lower extremity weakness and lethargy as the day progressed. When she was unable to ambulate to the bathroom in the afternoon, EMS was summoned and she was transported to the ED for further evaluation. The daughter reported that the patient had experienced some decrease in appetite and energy levels over the prior two weeks. The daughter also noted that the patient reported some involuntary "jerking" of her legs which she blamed as the cause of her fall. Upon arrival to the ED, her kidney function was found to be low with BUN 78, Creatinine 3.01, and GFR 15. Imaging showed chronic changes throughout the spine with T12 compression fracture new since July 2017 and CXR showed increased markings in the right lower lobe with recommendation for followup studies. She was admitted for IVF and further evaluation. The following morning, she had resting quietly with her daughter at the bedside. She reported feeling better than she did the previous day and was able to eat a few bites of her breakfast. She noted continued pain in her right ribs with movement or with deep breathing as a result of her fall. Hospital Course Hospital Course: After admission patient was started on Rocephin empirically for UTI and IV fluids. She was also hypokalemic and was started on p.o. potassium after which her potassium did normalize. Creatinine also improved and she was transitioned to a saline lock. She had x-rays of her ankle knee and pelvis which were all negative for fracture. Chest x-ray showed nothing acute. She had CT of the lumbar, thoracic, and cervical spine which showed a new thoracic compression fracture. She also had a CT of her head which showed a pansinusitis. Patient did experience some nausea and became very confused and sometimes combative. Her gabapentin dosage was decreased. Repeat CT of the head showed no new developments. Her mental status did improve and she became more oriented and was cooperative with her care. She was started on Flonase for the pansinusitis. Patient remained weak and was felt to be debilitated. After discussion with patient and family they decided to move her to a swing bed for further rehab. PT and OT were consulted. On 11/24/2018 she was stable to be discharged to the swing bed. Exam Vital signs and Labs for Last 24 Hours: Temp Pulse Resp BP Pulse Ox 98.0 F 63 16 103/46 L 95 11/24/18 09:58 11/24/18 09:58 11/24/18 09:58 11/24/18 09:58 11/24/18 09:58 I & O for Last 24 hours: Intake & Output 11/22/18 11/23/18 11/24/18 11/25/18 11:59 11:59 11:59 11:59 Weight 146 lb 9 oz - Constitutional no acute distress Comments: Awakened from sleep for exam. She appeared very comfortable. - *Routine Respiratory Exam Present: CTA bilaterally (Anteriorly and posteriorly) - *Routine Cardiovascular Exam Present: RRR - *Routine Abdominal Exam Present: soft, normoactive bowel sounds. Absent: tenderness Comments: She has a [place] catheter to bedside drainage - *Routine Extremities Exam Absent: edema, calf tenderness - *Routine Neurological Exam Present: alert (Just awakened her from sleep) Results Completed studies during hospitalization [Text1]: 11/19/2018 x-ray of the right ankle IMPRESSION: Negative ankle, no acute finding 11/19/2018 x-ray of the right knee IMPRESSION: Osteoarthritis with chondrocalcinosis, no acute finding 11/19/2018 CT of the lumbar spine IMPRESSION: 1. Mild acute wedge compression changes of T12 without retropulsion. 2. 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 3. Possible left paracentral disc herniation or protrusion at L4-L5. MRI may be of further value. 11/19/2018 x-ray of the pelvis IMPRESSION: Negative pelvis. 11/19/2018 CT of the thoracic spine IMPRESSION: Mild compression fracture of T12 which was not apparent on 08/20/2017 11/19/2018 CT of the cervical spine IMPRESSION: 1. No acute fracture. 2. Cervical spondylosis 11/19/2018 chest x-ray IMPRESSION: Bilateral partially calcified pleural plaques Increased markings right lung base medially which could be due to atelectasis, infiltrate, or vascular overlap. Suggest upright PA and lateral chest for further evaluation 11/19/2018 CT of the head IMPRESSION: 1. No acute intracranial findings. 2. Extensive sinusitis 11/22/[address] of the head IMPRESSION:...... Dissecting touch from Missy Mccurdy can you discharge Eric to [facility] if the wrist x-ray today discharge so she can get a day [facility] takes her almost 3 okay I do them early know what happens 1. No acute appearing intracranial findings. No significant change since 11/19/2018 Minor motion artifact slightly degrades images today but study is adequate diagnostic with no no new findings.. No hemorrhage. No mass lesion. No subdural.. 2. Mild diffuse cerebral atrophy age-appropriate. Mild Chronic small vessel white matter changes likely present 3.. Prominent Pansinusitis features again noted Laboratory Tests 11/21/18 11/24/18 11/24/18 09:11 06:03 06:03 WBC 4.7 L D RBC 3.15 L Hgb 10.7 L Hct 31.6 L MCV 100.1 H MCH 33.9 H Plt Count 150 D Sodium 144 Potassium 3.7 Chloride 109 H Carbon Dioxide 24 Anion Gap 14.7 BUN 23 H Creatinine 1.53 H D Estimated GFR 32 L Calcium 9.2 Total Protein 6.4 Albumin 2.6 L Globulin 3.8 H DS: Diagnosis - Discharge Diagnosis (1) Acute renal failure Status: Acute (2) Dehydration Status: Acute (3) Fall Status: Acute (4) Debility Status: Acute (5) Compression fracture of T12 vertebra Status: Acute (6) Nausea Status: Acute (7) Pansinusitis Status: Acute (8) Urinary tract infection Status: Acute (9) Altered mental status Status: Chronic Discharge/Transfer (Swing Bed) - Plan of Care Resident has been informed of condition and prognosis?: Yes Mobility Status: ambulatory with assistance Goal of treatment:: Satisfactory Rehab Potential: Fair Prognosis:: Satisfactory Mental Status: Average I concur with the most recent H&P: Yes Date of most recent H&P: 11/20/18 Certification: I have reviewed and agree with this resident's plan of care. I certify that post-hospital group home facility services are required to be given on an inpatient basis because of the need for group home care on a continuing basis for the condition(s) for which he/she is receiving inpatient hospital services prior to admission to swing bed. I also certify that the resident meets existing SNF level of care definition. - Discharge from Acute Disposition: [facility] Swing Bed Condition: Fair Home Med List for Swing Bed: No Action Omeprazole [Omeprazole 40mg Capsule] 40 mg PO DAILY Levobunolol HCl [Betagan 0.5% 10mL opth zohaib] 1 drop EYE-BOTH DAILY Gabapentin [Gabapentin 100mg Cap] 100 mg PO BID Furosemide [Furosemide 20mg Tab] 20 mg PO DAILY Fluticasone Propionate [Flonase 50mcg nasal spray 16gm] 1 spr IN DAILY Loratadine [Allergy Relief] 10 mg PO DAILY Ferrous Sulfate [Iron] 325 mg PO DAILY Cyanocobalamin (Vitamin B-12) [Vitamin B-12 1000mcg Tablet] 1,000 mcg PO DAILY Acetaminophen [Tylenol 500mg tablet] 500 mg PO Q4HP PRN tablet PRN Reason: As Needed For Fever Or Pain Donepezil HCl [Aricept 10mg tablet] 10 mg PO HS tab Fluticasone Propionate [Flonase 50mcg nasal spray 16gm] 1 spr NS DAILY bottle Levobunolol HCl [Betagan 0.5% 10mL opth zohaib] 0 ml OP DAILY ml Potassium Chloride [Klor-con 20 mEq tablet] 20 meq PO TID tab Ceftriaxone Sodium [Rocephin 1gm vial] 1 gm IV Q24H vial Lisinopril/Hydrochlorothiazide [Lisinopril-Hctz 10-12.5 mg Tab] 1 tab PO DAILY #30 tab Metoprolol Tartrate [Lopressor 25mg tablet] 25 mg PO DAILY Polyethylene Glycol 3350 [Miralax 17gm Packet] 17 gm PO DAILY 0.9 % Sodium Chloride [Saline Flush 10mL syringe] 10 ml IV NEEDED PRN syringe PRN Reason: Maintain Iv Site Memantine HCl [Memantine 10mg Tablet] 10 mg PO BID tab
--- NOTE | 2018-11-24 14:29 | Pharmacy Consult Notes ---
[facility] Pharmacy VTE Monitoring - Patient Demographics Admission date: 11/24/18 Report Date: 11/24/18 Time: 14:28 Allergies/Adverse Reactions: Patient Allergies No Known Allergies Allergy (Verified 08/18/17 22:29) Height: 1.52 m Weight: 66.48 kg Patient Problems: Current Active Problems (Updated 11/24/18 @ 14:22 by Cristine Mercdees APRN) Debility (Acute) Compression fracture of T12 vertebra (Acute) - VTE Risk Was VTE Risk Assessment Performed: Yes VTE Score: 2 Clinical Trial Participant: No - Prophylaxis VTE Prophylaxis Ordered?: Yes Types of VTE Prophylaxis: TEDS Knee High
--- NOTE | 2018-11-25 09:17 | Progress Note ---
Internal Medicine - PN: Subj *Date: 11/25/18 *Time: 09:15 Interval history: The daughter reports that she is much more her old self today. Apparently she got some rest last night. She is sitting up in a chair this morning. We need to check some labs. Exam Vital signs and Labs for Last 24 Hours: Temp Pulse Resp BP Pulse Ox 98.3 F 69 16 135/84 98 11/25/18 08:18 11/25/18 08:18 11/25/18 08:18 11/25/18 08:18 11/25/18 08:18 I & O for Last 24 hours: Intake & Output 11/22/18 11/23/18 11/24/18 11/25/18 11:59 11:59 11:59 11:59 Intake Total 960 / 960 Output Total Balance 957 / 957 Weight 146 lb 9 oz - Constitutional no acute distress - *Routine HEENT Exam Eye: Present: PERRL ENT: Present: mucous membranes moist - *Routine Respiratory Exam Present: CTA bilaterally - *Routine Cardiovascular Exam Present: RRR - *Routine Extremities Exam Absent: edema Assessment and Plan (1) Acute renal failure Current visit: No Status: Acute Qualifiers: Acute renal failure type: unspecified Qualified Code(s): N17.9 - Acute kidney failure, unspecified Category: Medical Code(s): N17.9 - Acute kidney failure, unspecified (2) Dehydration Current visit: No Status: Acute Category: Medical Code(s): E86.0 - Dehydration (3) Fall Current visit: No Status: Acute Qualifiers: Encounter type: initial encounter Qualified Code(s): W19.XXXA - Unspecified fall, initial encounter Category: Medical Code(s): W19.XXXA - Unspecified fall, initial encounter (4) Debility Current visit: Yes Status: Acute Category: Medical Code(s): R53.81 - Other malaise (5) Compression fracture of T12 vertebra Current visit: Yes Status: Acute Category: Medical Code(s): S22.080A - Wedge compression fracture of T11-T12 vertebra, initial encounter for closed fracture (6) Nausea Current visit: No Status: Acute Category: Medical Code(s): R11.0 - Nausea (7) Pansinusitis Current visit: No Status: Acute Qualifiers: Chronicity: unspecified Qualified Code(s): 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
[2018-11-25 09:57] LABS: Basophils % 0.2 % (0.1-2.0); Eosinophils # 0.2 K/mm3 (0.0-0.4); Eosinophils % 3.9 % (0.1-12.0); Hematocrit 31.8 % (37.0-47.0); Hemoglobin 10.6 g/dL (12.2-16.2); Lymphocytes % 22.8 % (10-50); Mean Corpuscular HGB Conc 33.3 g/dL (31.8-35.4); Mean Corpuscular Hemoglobin 33.5 pg (27.0-31.2); Mean Corpuscular Volume 100.6 fl (81-99); Mean Platelet Volume 8.9 fl (7.4-10.4); Monocytes # 0.3 K/mm3 (0.1-1.0); Monocytes % 8.1 % (1.7-9.3); Neutrophils # 2.7 K/mm3 (1.8-7.8); Neutrophils % 64.9 % (37.0-80.0); Platelet Count 186 K/mm3 (142-424); Red Blood Count 3.16 M/mm3 (4.20-5.40); White Blood Count 4.2 K/mm3 (4.8-10.8)
[2018-11-25 11:04] LABS: Anion Gap 15.2 mEq/L (5-15); Calcium 9.2 mg/dL (8.5-10.1); Potassium 4.2 mmoL/L (3.5-5.1)
--- NOTE | 2018-11-26 08:11 | Progress Note ---
Internal Medicine - PN: Subj *Date: 11/26/18 *Time: 08:10 Interval history: Patient states she is feeling well this morning. She has some pain in her left ribs but denies any other pain. She states she slept well and ate a good breakfast. She worked with therapy yesterday and walked all the way around the hallway. Exam Vital signs and Labs for Last 24 Hours: Temp Pulse Resp BP Pulse Ox 98.4 F 68 17 143/65 H 96 11/26/18 08:00 11/26/18 08:00 11/26/18 08:00 11/26/18 08:00 11/26/18 08:00 Laboratory Results - last 24 hr 11/25/18 07:23: WBC 4.2 L, RBC 3.16 L, Hgb 10.6 L, Hct 31.8 L, MCV 100.6 H, MCH 33.5 H, MCHC 33.3, RDW 14.0, Plt Count 186, MPV 8.9, Neut % (Auto) 64.9, Lymph % (Auto) 22.8, [place] % (Auto) 8.1, Eos % (Auto) 3.9, Baso % (Auto) 0.2, Neut # (Auto) 2.7, Lymph # (Auto) 1.0, [place] # (Auto) 0.3, Eos # (Auto) 0.2, Baso # (Auto) 0.0 11/25/18 07:23: Sodium 144, Potassium 4.2, Chloride 107, Carbon Dioxide 26, Anion Gap 15.2 H, BUN 27 H, Creatinine 1.54 H, Estimated Creat Clear 27, Estimated GFR 32 L, Est GFR ( Amer) 38 L, Glucose 135 H, Calcium 9.2 I & O for Last 24 hours: Intake & Output 11/23/18 11/24/18 11/25/18 11/26/18 11:59 11:59 11:59 11:59 Intake Total 960 / 960 850 / 850 Output Total Balance 957 / 957 850 / 850 Weight 146 lb 9 oz 146 lb 2 oz - Constitutional no acute distress - *Routine Respiratory Exam Present: CTA bilaterally - *Routine Cardiovascular Exam Present: RRR - *Routine Abdominal Exam Present: soft, normoactive bowel sounds. Absent: tenderness - *Routine Extremities Exam Absent: cyanosis, clubbing, edema Assessment and Plan (1) Acute renal failure Current visit: No Status: Acute Qualifiers: Acute renal failure type: unspecified Qualified Code(s): N17.9 - Acute kidney failure, unspecified Category: Medical Code(s): N17.9 - Acute kidney failure, unspecified (2) Dehydration Current visit: No Status: Acute Category: Medical Code(s): E86.0 - Dehydration (3) Fall Current visit: No Status: Acute Qualifiers: Encounter type: initial encounter Qualified Code(s): W19.XXXA - Unspecified fall, initial encounter Category: Medical Code(s): W19.XXXA - Unspecified fall, initial encounter (4) Debility Current visit: Yes Status: Acute Category: Medical Code(s): R53.81 - Other malaise (5) Compression fracture of T12 vertebra Current visit: Yes Status: Acute Category: Medical Code(s): S22.080A - Wedge compression fracture of T11-T12 vertebra, initial encounter for closed fracture (6) Nausea Current visit: No Status: Acute Category: Medical Code(s): R11.0 - Nausea (7) Pansinusitis Current visit: No Status: Acute Qualifiers: Chronicity: unspecified Qualified Code(s): 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
--- NOTE | 2018-11-27 08:41 | Progress Note ---
Internal Medicine - PN: Subj *Date: 11/27/18 *Time: 08:39 Interval history: Patient states she is feeling well this morning. She denies any pain. She states she was up and walked with therapy yesterday. She slept off and on throughout the night. She ate some breakfast this morning. Exam Vital signs and Labs for Last 24 Hours: Temp Pulse Resp BP Pulse Ox 98.0 F 68 17 175/61 H 97 11/27/18 08:00 11/27/18 08:00 11/27/18 08:00 11/27/18 08:00 11/27/18 08:00 I & O for Last 24 hours: Intake & Output 11/24/18 11/25/18 11/26/18 11/27/18 11:59 11:59 11:59 11:59 Intake Total 960 / 960 850 / 850 840 / 840 Output Total Balance 957 / 957 850 / 850 810 / 810 Weight 146 lb 9 oz 146 lb 2 oz 145 lb 8 oz - Constitutional no acute distress - *Routine Respiratory Exam Present: CTA bilaterally - *Routine Cardiovascular Exam Present: RRR - *Routine Abdominal Exam Present: soft, normoactive bowel sounds. Absent: tenderness - *Routine Extremities Exam Absent: cyanosis, clubbing, edema Assessment and Plan (1) Acute renal failure Current visit: No Status: Acute Qualifiers: Acute renal failure type: unspecified Qualified Code(s): N17.9 - Acute kidney failure, unspecified Category: Medical Code(s): N17.9 - Acute kidney failure, unspecified (2) Dehydration Current visit: No Status: Acute Category: Medical Code(s): E86.0 - Dehydration (3) Fall Current visit: No Status: Acute Qualifiers: Encounter type: initial encounter Qualified Code(s): W19.XXXA - Unspecified fall, initial encounter Category: Medical Code(s): W19.XXXA - Unspecified fall, initial encounter (4) Debility Current visit: Yes Status: Acute Category: Medical Code(s): R53.81 - Other malaise (5) Compression fracture of T12 vertebra Current visit: Yes Status: Acute Category: Medical Code(s): S22.080A - Wedge compression fracture of T11-T12 vertebra, initial encounter for closed fracture (6) Nausea Current visit: No Status: Acute Category: Medical Code(s): R11.0 - Nausea (7) Pansinusitis Current visit: No Status: Acute Qualifiers: Chronicity: unspecified Qualified Code(s): 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 We will get labs this morning.
[2018-11-27 09:47] LABS: Basophils % 0.3 % (0.1-2.0); Eosinophils # 0.1 K/mm3 (0.0-0.4); Eosinophils % 2.8 % (0.1-12.0); Hematocrit 34.5 % (37.0-47.0); Lymphocytes # 1.2 K/mm3 (0.7-4.5); Lymphocytes % 24.8 % (10-50); Mean Corpuscular HGB Conc 31.8 g/dL (31.8-35.4); Mean Corpuscular Hemoglobin 32.9 pg (27.0-31.2); Mean Corpuscular Volume 103.4 fl (81-99); Mean Platelet Volume 8.8 fl (7.4-10.4); Monocytes # 0.3 K/mm3 (0.1-1.0); Monocytes % 6.2 % (1.7-9.3); Neutrophils # 3.3 K/mm3 (1.8-7.8); Neutrophils % 65.8 % (37.0-80.0); Platelet Count 257 K/mm3 (142-424); Red Blood Count 3.34 M/mm3 (4.20-5.40); Red Cell Distribution Width 14.2 % (11.5-17.5)
--- NOTE | 2018-11-27 10:04 | Progress Note ---
Internal Medicine - PN: Subj *Date: 11/27/18 *Time: 10:03 Exam Vital signs and Labs for Last 24 Hours: Temp Pulse Resp BP Pulse Ox 98.0 F 68 17 175/61 H 97 11/27/18 08:00 11/27/18 08:00 11/27/18 08:00 11/27/18 08:00 11/27/18 09:10 Laboratory Results - last 24 hr 11/27/18 09:31: WBC 5.0, RBC 3.34 L, Hgb 11.0 L, Hct 34.5 L, MCV 103.4 H, MCH 32.9 H, MCHC 31.8, RDW 14.2, Plt Count 257 D, MPV 8.8, Neut % (Auto) 65.8, Lymph % (Auto) 24.8, [place] % (Auto) 6.2, Eos % (Auto) 2.8, Baso % (Auto) 0.3, Neut # (Auto) 3.3, Lymph # (Auto) 1.2, [place] # (Auto) 0.3, Eos # (Auto) 0.1, Baso # (Auto) 0.0 I & O for Last 24 hours: Intake & Output 11/24/18 11/25/18 11/26/18 11/27/18 23:59 23:59 23:59 23:59 Intake Total 600 / 600 910 / 970 900 / 900 240 / 240 Output Total Balance 597 / 597 910 / 970 900 / 900 210 / 210 Weight 66.48 kg 66.281 kg 65.998 kg Assessment and Plan (1) Acute renal failure Current visit: No Status: Acute Qualifiers: Acute renal failure type: unspecified Qualified Code(s): N17.9 - Acute kidney failure, unspecified Category: Medical Code(s): N17.9 - Acute kidney failure, unspecified (2) Dehydration Current visit: No Status: Acute Category: Medical Code(s): E86.0 - Dehydration (3) Fall Current visit: No Status: Acute Qualifiers: Encounter type: initial encounter Qualified Code(s): W19.XXXA - Unspecified fall, initial encounter Category: Medical Code(s): W19.XXXA - Unspecified fall, initial encounter (4) Debility Current visit: Yes Status: Acute Category: Medical Code(s): R53.81 - Other malaise (5) Compression fracture of T12 vertebra Current visit: Yes Status: Acute Category: Medical Code(s): S22.080A - Wedge compression fracture of T11-T12 vertebra, initial encounter for closed fracture (6) Nausea Current visit: No Status: Acute Category: Medical Code(s): R11.0 - Nausea (7) Pansinusitis Current visit: No Status: Acute Qualifiers: Chronicity: unspecified Qualified Code(s): 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 Category: Medical Code(s): 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 (8) Urinary tract infection Current visit: No Status: Acute Category: Medical Code(s): N39.0 - Urinary tract infection, site not specified (9) Altered mental status Current visit: No Status: Chronic Qualifiers: Altered mental status type: transient alteration of awareness Qualified Code(s): R40.4 - Transient alteration of awareness Category: Medical Code(s): R41.82 - Altered mental status, unspecified The patient's infection will respond to the chosen ABx?: Yes Is the patient receiving the right drug, dose, and route?: Yes Could a more targeted ABx be ordered?: No (AFEBRILE CONTINUE ABX)
[2018-11-27 10:10] LABS: Albumin Level 2.4 gm/dL (3.4-5.0); Albumin/Globulin Ratio 0.5 (1.1-1.8); Anion Gap 15.5 mEq/L (5-15); Bilirubin,Total 0.2 mg/dL (0.2-1.0); Calcium 9.4 mg/dL (8.5-10.1); Globulin 4.5 gm/dl (1.3-3.2); Potassium 5.5 mmoL/L (3.5-5.1); Total Protein,Serum 6.9 gm/dL (6.4-8.2)
--- NOTE | 2018-11-28 08:33 | Progress Note ---
Internal Medicine - PN: Subj *Date: 11/28/18 *Time: 08:31 Interval history: Patient states she is feeling well this morning. She ate breakfast and denies any pain. She states she slept well and has been working well with therapy. Exam Vital signs and Labs for Last 24 Hours: Temp Pulse Resp BP Pulse Ox 98.5 F 75 16 145/64 H 96 11/28/18 08:00 11/28/18 08:00 11/28/18 08:00 11/28/18 08:00 11/27/18 20:00 Laboratory Results - last 24 hr 11/27/18 09:31: WBC 5.0, RBC 3.34 L, Hgb 11.0 L, Hct 34.5 L, MCV 103.4 H, MCH 32.9 H, MCHC 31.8, RDW 14.2, Plt Count 257 D, MPV 8.8, Neut % (Auto) 65.8, Lymph % (Auto) 24.8, [place] % (Auto) 6.2, Eos % (Auto) 2.8, Baso % (Auto) 0.3, Neut # (Auto) 3.3, Lymph # (Auto) 1.2, [place] # (Auto) 0.3, Eos # (Auto) 0.1, Baso # (Auto) 0.0 11/27/18 09:31: Sodium 143, Potassium 5.5 H D, Chloride 106, Carbon Dioxide 27, Anion Gap 15.5 H, BUN 48 H D, Creatinine 1.61 H, Estimated Creat Clear 25, Estimated GFR 30 L, Est GFR ( Amer) 37 L, Glucose 144 H, Calcium 9.4, Total Bilirubin 0.2, AST 7 L, ALT 12, Alkaline Phosphatase 103, Total Protein 6.9, Albumin 2.4 L, Globulin 4.5 H, Albumin/Globulin Ratio 0.5 L I & O for Last 24 hours: Intake & Output 11/25/18 11/26/18 11/27/18 11/28/18 11:59 11:59 11:59 11:59 Intake Total 960 / 960 850 / 850 840 / 840 480 / 480 Output Total 3 / 3 280 / 280 Balance 957 / 957 850 / 850 560 / 560 480 / 480 Weight 146 lb 2 oz 145 lb 8 oz - Constitutional no acute distress - *Routine Respiratory Exam Present: CTA bilaterally - *Routine Cardiovascular Exam Present: RRR - *Routine Abdominal Exam Present: soft, normoactive bowel sounds. Absent: tenderness - *Routine Extremities Exam Absent: cyanosis, clubbing, edema - *Routine Skin Exam Present: warm. Absent: rash Assessment and Plan (1) Acute renal failure Current visit: No Status: Acute Qualifiers: Acute renal failure type: unspecified Qualified Code(s): N17.9 - Acute kidney failure, unspecified Category: Medical Code(s): N17.9 - Acute kidney failure, unspecified (2) Dehydration Current visit: No Status: Acute Category: Medical Code(s): E86.0 - Dehydration (3) Fall Current visit: No Status: Acute Qualifiers: Encounter type: initial encounter Qualified Code(s): W19.XXXA - Unspecified fall, initial encounter Category: Medical Code(s): W19.XXXA - Unspecified fall, initial encounter (4) Debility Current visit: Yes Status: Acute Category: Medical Code(s): R53.81 - Other malaise (5) Compression fracture of T12 vertebra Current visit: Yes Status: Acute Category: Medical Code(s): S22.080A - Wedge compression fracture of T11-T12 vertebra, initial encounter for closed fracture (6) Nausea Current visit: No Status: Acute Category: Medical Code(s): R11.0 - Nausea (7) Pansinusitis Current visit: No Status: Acute Qualifiers: Chronicity: unspecified Qualified Code(s): 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 Patient's potassium was slightly elevated yesterday, therefore will decrease dose today.
--- NOTE | 2018-12-01 13:19 | Discharge Summary ---
General - General Admission date:: 11/24/18 Discharge date: 11/28/18 HPI HPI: Ms. Sequeira is an 88yo WF with hx of HTN, HLP, Renal Insufficiency, Glaucoma, GERD, and Anemia who was brought to the [facility] ED by squad. Her daughter provided most of the history and described her falling while coming out of the bathroom followed by increasing lower extremity weakness and lethargy as the day progressed. When she was unable to ambulate to the bathroom in the afternoon, EMS was summoned and she was transported to the ED for further evaluation. The daughter reported that the patient had experienced some decrease in appetite and energy levels over the prior two weeks. The daughter also noted that the patient reported some involuntary "jerking" of her legs which she blamed as the cause of her fall. Upon arrival to the ED, her kidney function was found to be low with BUN 78, Creatinine 3.01, and GFR 15. Imaging showed chronic changes throughout the spine with T12 compression fracture new since July 2017 and CXR showed increased markings in the right lower lobe with recommendation for followup studies. She was admitted for IVF and further evaluation. Hospital Course Hospital Course: After admission patient was started on Rocephin empirically for UTI and IV fluids. She was also hypokalemic and was started on p.o. potassium after which her potassium did normalize. Creatinine also improved and she was transitioned to a saline lock. She had x-rays of her ankle knee and pelvis which were all negative for fracture. Chest x-ray showed nothing acute. She had CT of the lumbar, thoracic, and cervical spine which showed a new thoracic compression fracture. She also had a CT of her head which showed a pansinusitis. Patient did experience some nausea and became very confused and sometimes combative. Her gabapentin dosage was decreased. Repeat CT of the head showed no new developments. Her mental status did improve and she became more oriented and was cooperative with her care. She was started on Flonase for the pansinusitis. Patient remained weak and was felt to be debilitated. After discussion with patient and family they decided to move her to a swing bed for further rehab. PT and OT were consulted. On 11/24/2018 she was stable to be discharged to the swing bed. She did well throughout her swing bed admission. Her mentation returned to normal. She worked well with therapy was able to get up and walk around the hallway. She was continued on antibiotics. She began eating well and feeling much better. She was stable to be discharged home on cefdinir and will follow up with Jasmina in [place]. Objective Vital signs: Temp Pulse Resp BP Pulse Ox 98.5 F 75 16 145/64 H 98 11/28/18 08:00 11/28/18 08:00 11/28/18 08:00 11/28/18 08:00 11/28/18 08:00 Narrative: - Constitutional no acute distress Comments: Awakened from sleep for exam. She appeared very comfortable. - *Routine Respiratory Exam Present: CTA bilaterally (Anteriorly and posteriorly) - *Routine Cardiovascular Exam Present: RRR - *Routine Abdominal Exam Present: soft, normoactive bowel sounds. Absent: tenderness Comments: She has a [place] catheter to bedside drainage - *Routine Extremities Exam Absent: edema, calf tenderness - *Routine Neurological Exam Present: alert (Just awakened her from sleep) DS: Diagnosis - Discharge Diagnosis (1) Acute renal failure Status: Acute (2) Dehydration Status: Acute (3) Fall Status: Acute (4) Debility Status: Acute (5) Compression fracture of T12 vertebra Status: Acute (6) Nausea Status: Acute (7) Pansinusitis Status: Acute (8) Urinary tract infection Status: Acute (9) Altered mental status Status: Chronic Discharge Plan - Patient Discharge Instructions ACTIVITY: Continue current activity Patient Instructions: Acute Renal Failure - Follow up Plan Follow up with: Jasmina Al APRN [Nurse Practitioner] - 12/12/18 10:30 am ([place] Office) Disposition: Home, Self-Correction Medications: Home Medications Medication Instructions Recorded Confirmed Type Cyanocobalamin (Vitamin B-12) 1,000 mcg PO DAILY 08/19/17 11/24/18 History [Vitamin B-12 1000mcg Tablet] Ferrous Sulfate [Iron] 325 mg PO DAILY 08/19/17 11/24/18 History Fluticasone Propionate [Flonase 1 spr IN DAILY 08/19/17 11/24/18 History 50mcg nasal spray 16gm] Furosemide [Furosemide 20mg Tab] 20 mg PO DAILY 08/19/17 11/24/18 History Levobunolol HCl [Betagan 0.5% 10mL 1 drop EYE-BOTH DAILY 08/19/17 11/24/18 History opth zohaib] Metoprolol Tartrate [Lopressor 25 mg PO DAILY 08/19/17 11/24/18 History 25mg tablet] Acetaminophen [Tylenol 500mg 500 mg PO Q4HP PRN tablet 08/27/17 11/24/18 Rx tablet] Polyethylene Glycol 3350 [Miralax 17 gm PO DAILY 11/19/18 11/24/18 History 17gm Packet] Donepezil HCl [Aricept 10mg 10 mg PO HS 11/24/18 11/24/18 History tablet] Lisinopril/Hydrochlorothiazide 1 tab PO DAILY 11/24/18 11/24/18 History [Lisinopril-Hctz 10-12.5 mg Tab] Memantine HCl [Memantine 10mg 10 mg PO BID 11/24/18 11/24/18 History Tablet] Cefdinir [Omnicef 300mg Capsule] 300 mg PO BID #14 cap 11/28/18 Rx Potassium Chloride [K-Tab ER 20 20 meq PO DAILY #30 tab 11/28/18 Rx mEq] Prescriptions/Medication Reconciliation: New Potassium Chloride [K-Tab ER 20 mEq] 20 meq PO DAILY #30 tab Cefdinir [Omnicef 300mg Capsule] 300 mg PO BID #14 cap Continued Levobunolol HCl [Betagan 0.5% 10mL opth zohaib] 1 drop EYE-BOTH DAILY Furosemide [Furosemide 20mg Tab] 20 mg PO DAILY Fluticasone Propionate [Flonase 50mcg nasal spray 16gm] 1 spr IN DAILY Ferrous Sulfate [Iron] 325 mg PO DAILY Cyanocobalamin (Vitamin B-12) [Vitamin B-12 1000mcg Tablet] 1,000 mcg PO DAILY Acetaminophen [Tylenol 500mg tablet] 500 mg PO Q4HP PRN tablet PRN Reason: As Needed For Fever Or Pain Memantine HCl [Memantine 10mg Tablet] 10 mg PO BID Donepezil HCl [Aricept 10mg tablet] 10 mg PO HS Metoprolol Tartrate [Lopressor 25mg tablet] 25 mg PO DAILY Polyethylene Glycol 3350 [Miralax 17gm Packet] 17 gm PO DAILY Lisinopril/Hydrochlorothiazide [Lisinopril-Hctz 10-12.5 mg Tab] 1 tab PO DAILY Discontinued Omeprazole [Omeprazole 40mg Capsule] 40 mg PO DAILY Gabapentin [Gabapentin 100mg Cap] 100 mg PO BID Loratadine [Allergy Relief] 10 mg PO DAILY Levobunolol HCl [Betagan 0.5% 10mL opth zohabi] 0 ml OP DAILY Fluticasone Propionate [Flonase 50mcg nasal spray 16gm] 1 spr NS DAILY Ceftriaxone Sodium [Rocephin 1gm vial] 1 gm IV Q24H 0.9 % Sodium Chloride [Saline Flush 10mL syringe] 10 ml IV NEEDED PRN syringe PRN Reason: Maintain Iv Site Potassium Chloride [Klor-con 20 mEq tablet] 20 meq PO TID
== END 2018-11-28 11:42 | disposition home or self-care (01) | DRG 552 ==
LOC: 2ND 09:34
PROVIDERS: ADMIT Family Medicine; ATTEND Family Medicine